=== PATIENT | male | born 1965 | race Caucasian/White ===

== ENCOUNTER 2021-04-26 09:23 | Outpatient (REF) | payer OTHER, SELFPAY ==
--- NOTE | ~2021-04-26 | XR_ITS ---
EXAMINATION: BILATERAL HAND X-RAY CLINICAL INFORMATION: Pain COMPARISON: None TECHNIQUE: 3 views of each hand FINDINGS: Right: Bone alignment is normal. No fracture or dislocation is seen. There is joint space narrowing and small osteophytes at the DIP joint of the fifth finger. Joint spaces are otherwise normal. Soft tissues are normal. Left: Bone alignment is normal. No fracture or dislocation is seen. The joint spaces are normal. Soft tissues are normal. XR/XR hand RT min 3V IMPRESSION: Mild arthritis at the DIP joint of the right fifth finger otherwise unremarkable exam.
--- NOTE | ~2021-04-26 | XR_ITS ---
EXAMINATION: BILATERAL HAND X-RAY CLINICAL INFORMATION: Pain COMPARISON: None TECHNIQUE: 3 views of each hand FINDINGS: Right: Bone alignment is normal. No fracture or dislocation is seen. There is joint space narrowing and small osteophytes at the DIP joint of the fifth finger. Joint spaces are otherwise normal. Soft tissues are normal. Left: Bone alignment is normal. No fracture or dislocation is seen. The joint spaces are normal. Soft tissues are normal. XR/XR hand LT min 3V IMPRESSION: Mild arthritis at the DIP joint of the right fifth finger otherwise unremarkable exam.
[2021-04-26 12:00] LABS: Alanine Aminotransferase 25 U/L (0-40); Albumin Level 3.9 g/dL (3.5-5.0); Alkaline Phosphatase 74 U/L (39-117); Anion Gap 14 (12-20); Aspartate Amino Transferase 20 U/L (5-37); Bilirubin Total 0.5 mg/dL (0.0-1.0); Blood Urea Nitrogen 10 mg/dL (9-16); C Reactive Protein 0.67 mg/dL (< or = 0.50); Calcium 9.1 mg/dL (8.4-10.2); Carbon Dioxide 27 mmol/L (22-29); Chloride 104 mmol/L (96-108); Cholesterol 146 mg/dL; Estimated Glomerular Filt Rate > 60; Glucose Fasting 95 mg/dL (60-99); HDL Cholesterol 26 mg/dL; LDL Cholesterol Calculated 89 mg/dl; Potassium 4.7 mmol/L (3.3-5.1); Rheumatoid Factor < 15.0 IU/mL (<15.0); Sodium 140 mmol/L (135-145); Total Protein 7.9 g/dL (6.5-8.0); Triglycerides 155 mg/dL
[2021-04-26 12:01] LABS: Prostate Specific Antigen Scr 0.51 ng/mL (<0.05-4.0); TSH reflex Free T4 1.32 uIU/mL (0.32-4.0)
[2021-04-26 12:10] LABS: Erythrocyte Sedimentation Rate 96 MM/HR (0-15)
[2021-04-27 21:07] LABS: Lyme Abs Screen <0.90 index
[2021-05-01 16:12] LABS: Cyclic Citrullinated Peptide <16 UNITS
== END 2021-04-26 09:24 | disposition home or self-care (01) ==
LOC: HO.HMGCX 09:23
PROVIDERS: PCP Nurse Practitioner Family; Visit Provider Nurse Practitioner Family
DX: Z00.00 Encounter for general adult medical examination without abnormal findings (principal); M25.50 Pain in unspecified joint; Z12.5 Encounter for screening for malignant neoplasm of prostate
CPT/HCPCS: 36415; 73130; 80053; 80061; 84153; 84443; 85652; 86140; 86200; 86431; 86617; 86618

== ENCOUNTER → 2024-03-03 12:30 | Outpatient (BNV) | payer OTHER, SELFPAY | PROVIDERS: Visit Provider Psychiatry & Neurology Psychiatry | DX: F33.2 Major depressive disorder, recurrent severe without psychotic features (principal) | CPT/HCPCS: 90867; 90868; 90869 ==

== ENCOUNTER 2024-05-14 11:00 | Outpatient (RCR) | payer OTHER, SELFPAY ==
--- NOTE | 2024-02-16 23:25 | P.CONTMS_ITS ---
History of Present Illness General Data Date of Service: 02/16/2024 Reason for consult: TMS EVAL RESISTANT DEPRESSION referred by [facility] History of Present Illness The patient is a single male currently living with his mother who has a history of treatment resistant depression currently treated at [facility]. Recent stressors include being laid off by the [employer] in December had been a district or district office director and he would lost a eddy current inspector dog of 18 years and number of months ago. The patient has an elevated PHQ-9 of 18 GED of 12 both described as very difficult patient reports marked anhedonia depressed mood almost all the with marked difficulty in functioning motivation and concentration he is thoughts would be better off but denies current plan or intent he does carry a diagnosis of recurrent depression severe generalized anxiety and ADHD. His current medications include Wellbutrin 150 mg higher doses were not helpful duloxetine 40 mg Adderall 20 mg twice a day he is on B12 replacement vitamin D3 and multivitamin. He is in ongoing psychotherapy at [facility] with sea Guevara which she has found helpful He is also dealing with a chronic issue of Joe straightens macroglobulinemia he has had he electrophoresis in the past he is regularly followed by a oncologist Past Psychiatric History/Medication Trials: He is failed in the current episode Wellbutrin Cymbalta fluoxetine up to 40 mg venlafaxine up to 150 mg with no response Fetzima 20 mg had adverse reaction to and was not tolerated [facility] Medical History (Updated 02/19/24 @ 13:41 by Obie Mills MD) Waldenstrom macroglobulinemia Family History: depression Social History: Patient is a single lim male currently living with his mother in [place] 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 No children not currently dating significant losses including synthetic significant medical illness loss of job loss of dog of 18 His father 4 years ago he does have 3 sisters Substance History: none noted Meds/Allergies Meds Home Medications ?Medication ?Instructions ?Recorded ?Confirmed ?Type dextroamphetamine-amphetamine 20 1 tab PO DAILY 12/14/22 History mg tablet dextroamphetamine-amphetamine ER 1 cap PO QAM 12/14/22 History 20 mg 24hr capsule,extend release fluoxetine 40 mg capsule 40 mg PO DAILY 12/14/22 History venlafaxine 75 mg tablet,extended 75 mg PO DAILY 12/14/22 History release 24 hr Allergies Allergies Allergy/AdvReac Type Severity Reaction Status Date / Time No Known Allergies Allergy Unverified 12/21/22 13:42 [No Known Allergies*] Mental Status Exam Mental Status Exam Patient Appearance: Well Grooomed Patient Orientation: Person, Place, Time and Situation Level of Consciousness: Awake and Appropriate Patient Behavior: Cooperative Mood Description: Depressed and Blunted Affect Description: Appropriate and Constricted Patient Cognition Impaired: No Ability to Follow Directions: Good Speech Pattern: Clear Memory Description: Intact Hallucinations: None Delusions: Not Present Thought Process: Intact and Goal Oriented Thought Content: positive for Goal Oriented, positive for Preoccupation, negative for Suicidal Ideation or negative for Homicidal Ideation Depressive Symptoms: Increased Anxiety, Insomnia, Increased Irritability, Hopelessness, Increased Fatigue, Loss of Energy and Difficulty Concentrating Judgement: Good Judgement and Insight: Patient is asking for help he does have thoughts at times he would be better off but does family connections Assessment & Plan Assessment & Plan (1) Major depressive disorder, recurrent severe without psychotic features: Status: Acute Code(s): F33.2 - Major depressive disorder, recurrent severe without psychotic features (2) Generalized anxiety disorder: Status: Acute Code(s): F41.1 - Generalized anxiety disorder Plan The patient has no medical concrete indications to TMS no history of seizures no pacemaker no cochlear implant no history of surgery above that her neck implants no history of significant head injury patient has reviewed material regarding TMS questions answered records from [facility] reviewed patient would benefit from initiating TMS as soon as possible he has a clear candidate with multiple failed trials of treatment able to maintain safety cooperative and engaged Total time managing care of this patient today 60____ minutes. Patient educated on: diagnosis and TMS Informed Consent: understands
--- NOTE | 2024-03-03 17:44 | HO.TMSDAILY2 ---
TMS Daily Progress Note Daily TMS Progress Note Date of Service: 03/03/24 Week #: 1 Treatment #(12-09): 1 PHQ-9 Pre-Treatment (12-06): 18 PHQ-9 Most Recent (12-06): 17 Reviewed: TMS Mapping/Re-mapping completed Verification: I have reviewed the TMS Digging Machine Operator Note and agree with the contents. The patient remains a candidate to continue TMS treatment per protocol. Assessment and Plan (1) Major depressive disorder, recurrent severe without psychotic features: Status: Acute (2) Generalized anxiety disorder: Status: Acute Plan pt completed mapping and 1st tx without difficulty
--- NOTE | 2024-03-10 17:34 | P.PNPS_ITS ---
TMS Daily Progress Note Daily TMS Progress Note Date of Service: 03/04/24 Week #: 1 Treatment #(12-09): 2 PHQ-9 Pre-Treatment (12-06): 18 PHQ-9 Most Recent (12-06): 17 Reviewed: TMS Tech Note Reviewed Verification: I have reviewed the TMS Oven Baker Note and agree with the contents. The patient remains a candidate to continue TMS treatment per protocol. Assessment and Plan (1) Major depressive disorder, recurrent severe without psychotic features: Status: Acute Plan Some lightheadedness after treatment otherwise ok flat
--- NOTE | 2024-03-10 17:37 | P.PNPS_ITS ---
TMS Daily Progress Note Daily TMS Progress Note Date of Service: 03/05/24 Week #: 1 Treatment #(12-09): 3 PHQ-9 Pre-Treatment (12-06): 18 PHQ-9 Most Recent (12-06): 17 Reviewed: TMS Tech Note Reviewed Verification: I have reviewed the TMS River Guide Note and agree with the contents. The patient remains a candidate to continue TMS treatment per protocol. Assessment and Plan (1) Major depressive disorder, recurrent severe without psychotic features: Status: Acute Plan Some fatigue noted otherwise tolerating treatment
--- NOTE | 2024-03-10 17:39 | P.PNPS_ITS ---
TMS Daily Progress Note Daily TMS Progress Note Date of Service: 03/08/24 Week #: 1 Treatment #(12-09): 4 PHQ-9 Pre-Treatment (12-06): 18 PHQ-9 Most Recent (12-06): 17 Reviewed: TMS Tech Note Reviewed Verification: I have reviewed the TMS Mill Tender Washing Note and agree with the contents. The patient remains a candidate to continue TMS treatment per protocol. Assessment and Plan (1) Major depressive disorder, recurrent severe without psychotic features: Status: Acute Plan Some fatigue noted otherwise tolerating treatment ongoing MT percentage today was at 100%
--- NOTE | 2024-03-10 17:42 | P.PNPS_ITS ---
TMS Daily Progress Note Daily TMS Progress Note Date of Service: 03/09/24 Week #: 1 Treatment #(12-09): 5 PHQ-9 Pre-Treatment (12-06): 18 PHQ-9 Most Recent (12-06): 17 Reviewed: TMS Tech Note Reviewed Verification: I have reviewed the TMS Head Strength And Conditioning Coach Note and agree with the contents. The patient remains a candidate to continue TMS treatment per protocol. Assessment and Plan (1) Major depressive disorder, recurrent severe without psychotic features: Status: Acute Plan Perhaps some brightening MT percentage 105%
--- NOTE | 2024-03-10 17:46 | HO.TMSDAILY2 ---
TMS Daily Progress Note Daily TMS Progress Note Date of Service: 03/10/24 Week #: 2 Treatment #(12-09): 6 PHQ-9 Pre-Treatment (12-06): 18 PHQ-9 Most Recent (12-06): 16 Reviewed: TMS Tech Note Reviewed Verification: I have reviewed the TMS Bilingual School Psychologist Note and agree with the contents. The patient remains a candidate to continue TMS treatment per protocol. Assessment and Plan (1) Major depressive disorder, recurrent severe without psychotic features: Status: Acute Plan cont plan of care
--- NOTE | 2024-03-25 10:42 | P.PNPS_ITS ---
TMS Daily Progress Note Daily TMS Progress Note Date of Service: 03/22/24 Week #: 3 Treatment #(12-09): 14 PHQ-9 Pre-Treatment (12-06): 18 PHQ-9 Most Recent (12-06): 19 Reviewed: TMS Tech Note Reviewed Verification: I have reviewed the TMS Aniline Press Worker Note and agree with the contents. The patient remains a candidate to continue TMS treatment per protocol. Assessment and Plan (1) Major depressive disorder, recurrent severe without psychotic features: Status: Acute Plan no improvement till this point no noted side effects
--- NOTE | 2024-03-25 10:42 | P.PNPS_ITS ---
TMS Daily Progress Note Daily TMS Progress Note Date of Service: 03/19/24 Week #: 3 Treatment #(12-09): 13 PHQ-9 Pre-Treatment (12-06): 18 PHQ-9 Most Recent (12-06): 19 Reviewed: TMS Tech Note Reviewed Verification: I have reviewed the TMS Technical Sme Note and agree with the contents. The patient remains a candidate to continue TMS treatment per protocol. Assessment and Plan (1) Major depressive disorder, recurrent severe without psychotic features: Status: Acute Plan no improvement till this point
--- NOTE | 2024-03-25 10:42 | P.PNPS_ITS ---
TMS Daily Progress Note Daily TMS Progress Note Date of Service: 03/23/24 Week #: 3 Treatment #(12-09): 15 PHQ-9 Pre-Treatment (12-06): 18 PHQ-9 Most Recent (12-06): 18 Reviewed: TMS Tech Note Reviewed Verification: I have reviewed the TMS Taper And Floater Note and agree with the contents. The patient remains a candidate to continue TMS treatment per protocol. Assessment and Plan (1) Major depressive disorder, recurrent severe without psychotic features: Status: Acute Plan no improvement till this point no noted side effects
--- NOTE | 2024-03-25 10:42 | P.PNPS_ITS ---
TMS Daily Progress Note Daily TMS Progress Note Date of Service: 03/11/24 Week #: 2 Treatment #(12-09): 7 PHQ-9 Pre-Treatment (12-06): 18 PHQ-9 Most Recent (12-06): 16 Reviewed: TMS Tech Note Reviewed Verification: I have reviewed the TMS Cheese Wrapper Note and agree with the contents. The patient remains a candidate to continue TMS treatment per protocol. Assessment and Plan (1) Major depressive disorder, recurrent severe without psychotic features: Status: Acute Plan cont plan of care tolerating tx
--- NOTE | 2024-03-25 10:42 | HO.TMSDAILY2 ---
TMS Daily Progress Note Daily TMS Progress Note Date of Service: 03/12/24 Week #: 2 Treatment #(12-09): 8 PHQ-9 Pre-Treatment (12-06): 18 PHQ-9 Most Recent (12-06): 16 Reviewed: TMS Tech Note Reviewed Verification: I have reviewed the TMS Turret Punch Operator Note and agree with the contents. The patient remains a candidate to continue TMS treatment per protocol. Assessment and Plan (1) Major depressive disorder, recurrent severe without psychotic features: Status: Acute (2) Generalized anxiety disorder: Status: Acute (3) Post traumatic stress disorder (PTSD): Status: Acute Plan cont plan of care tolerating tx
--- NOTE | 2024-03-25 10:42 | HO.TMSDAILY2 ---
TMS Daily Progress Note Daily TMS Progress Note Date of Service: 03/15/24 Week #: 2 Treatment #(12-09): 9 PHQ-9 Pre-Treatment (12-06): 18 PHQ-9 Most Recent (12-06): 19 Reviewed: TMS Tech Note Reviewed Verification: I have reviewed the TMS Car Rental Service Attendant Note and agree with the contents. The patient remains a candidate to continue TMS treatment per protocol. Assessment and Plan (1) Major depressive disorder, recurrent severe without psychotic features: Status: Acute (2) Generalized anxiety disorder: Status: Acute (3) Post traumatic stress disorder (PTSD): Status: Acute Plan cont plan of care tolerating ? some inc tremor
--- NOTE | 2024-03-25 10:42 | HO.TMSDAILY2 ---
TMS Daily Progress Note Daily TMS Progress Note Date of Service: 03/16/24 Week #: 2 Treatment #(12-09): 10 PHQ-9 Pre-Treatment (12-06): 18 PHQ-9 Most Recent (12-06): 19 Reviewed: TMS Tech Note Reviewed Verification: I have reviewed the TMS Cardiac Monitor Technician Note and agree with the contents. The patient remains a candidate to continue TMS treatment per protocol. Assessment and Plan (1) Major depressive disorder, recurrent severe without psychotic features: Status: Acute (2) Generalized anxiety disorder: Status: Acute (3) Post traumatic stress disorder (PTSD): Status: Acute Plan cont plan of care tolerating tx no improvement till this point
--- NOTE | 2024-03-25 10:42 | HO.TMSDAILY2 ---
TMS Daily Progress Note Daily TMS Progress Note Date of Service: 03/17/24 Week #: 3 Treatment #(12-09): 11 PHQ-9 Pre-Treatment (12-06): 18 PHQ-9 Most Recent (12-06): 19 Reviewed: TMS Tech Note Reviewed Verification: I have reviewed the TMS Director Data Processing Note and agree with the contents. The patient remains a candidate to continue TMS treatment per protocol. Assessment and Plan (1) Major depressive disorder, recurrent severe without psychotic features: Status: Acute (2) Generalized anxiety disorder: Status: Acute Plan cont plan of care tolerating tx no improvement till this point
--- NOTE | 2024-03-25 10:42 | HO.TMSDAILY2 ---
TMS Daily Progress Note Daily TMS Progress Note Date of Service: 04/12/24 Week #: 3 Treatment #(12-09): 12 PHQ-9 Pre-Treatment (12-06): 18 PHQ-9 Most Recent (12-06): 19 Reviewed: TMS Tech Note Reviewed Verification: I have reviewed the TMS Weaving Inspector Note and agree with the contents. The patient remains a candidate to continue TMS treatment per protocol. Assessment and Plan (1) Major depressive disorder, recurrent severe without psychotic features: Status: Acute (2) Generalized anxiety disorder: Status: Acute Plan cont plan of care tolerating tx no improvement till this point
--- NOTE | 2024-03-25 10:43 | P.PNPS_ITS ---
TMS Daily Progress Note Daily TMS Progress Note Date of Service: 03/24/24 Week #: 4 Treatment #(12-09): 16 PHQ-9 Pre-Treatment (12-06): 18 PHQ-9 Most Recent (12-06): 16 Reviewed: TMS Tech Note Reviewed Verification: I have reviewed the TMS Direct Service Worker Note and agree with the contents. The patient remains a candidate to continue TMS treatment per protocol. Assessment and Plan (1) Major depressive disorder, recurrent severe without psychotic features: Status: Acute Plan cont plan of care no improvement will remap
--- NOTE | 2024-03-25 10:43 | HO.TMSDAILY2 ---
TMS Daily Progress Note Daily TMS Progress Note Date of Service: 04/12/24 Week #: 4 Treatment #(12-09): 17 PHQ-9 Pre-Treatment (12-06): 18 PHQ-9 Most Recent (12-06): 18 Reviewed: TMS Mapping/Re-mapping completed Verification: I have reviewed the TMS Alarm Mechanic Note and agree with the contents. The patient remains a candidate to continue TMS treatment per protocol. Assessment and Plan (1) Major depressive disorder, recurrent severe without psychotic features: Status: Acute Plan remap indicated pt remains flat apathetic dysphoric no improvement noted pt participated in remappoing inc mt noted
--- NOTE | 2024-04-12 21:41 | HO.TMSDAILY2 ---
TMS Daily Progress Note Daily TMS Progress Note Date of Service: 04/09/24 Week #: 6 Treatment #(-30): 27 PHQ-9 Pre-Treatment (1-): 18 PHQ-9 Most Recent (12-06): 18 TOYIN-7 Pre-Treatment (0-21): 12 TOYIN-7 Most Recent (0-21): 12 Reviewed: TMS Tech Note Reviewed Verification: I have reviewed the TMS Tufting Machine Operator Single Needle Note and agree with the contents. The patient remains a candidate to continue TMS treatment per protocol.
--- NOTE | 2024-04-12 21:42 | HO.TMSDAILY2 ---
TMS Daily Progress Note Daily TMS Progress Note Date of Service: 03/29/24 Week #: 4 Treatment #(-30): 19 PHQ-9 Pre-Treatment (-): 18 PHQ-9 Most Recent (12-06): 18 TOYIN-7 Pre-Treatment (0-21): 12 TOYIN-7 Most Recent (0-21): 16 Reviewed: TMS Tech Note Reviewed Verification: I have reviewed the TMS Neon Sign Installer Note and agree with the contents. The patient remains a candidate to continue TMS treatment per protocol.
--- NOTE | 2024-04-12 21:45 | HO.TMSDAILY2 ---
TMS Daily Progress Note Daily TMS Progress Note Date of Service: 03/30/24 Week #: 4 Treatment #(-30): 20 PHQ-9 Pre-Treatment (-): 18 PHQ-9 Most Recent (12-06): 18 TOYIN-7 Pre-Treatment (0-): 12 TOYIN-7 Most Recent (0-): 16 Reviewed: TMS Tech Note Reviewed Verification: I have reviewed the TMS Automotive Specialty Technician Note and agree with the contents. The patient remains a candidate to continue TMS treatment per protocol.
--- NOTE | 2024-04-12 21:46 | HO.TMSDAILY2 ---
TMS Daily Progress Note Daily TMS Progress Note Date of Service: 03/31/24 Week #: 5 Treatment #(-30): 21 PHQ-9 Pre-Treatment (-): 18 PHQ-9 Most Recent (12-06): 18 TOYIN-7 Pre-Treatment (0-): 12 TOYIN-7 Most Recent (0-21): 16 Reviewed: TMS Tech Note Reviewed Verification: I have reviewed the TMS Offset Press Operator Note and agree with the contents. The patient remains a candidate to continue TMS treatment per protocol.
--- NOTE | 2024-04-12 21:48 | HO.TMSDAILY2 ---
TMS Daily Progress Note Daily TMS Progress Note Date of Service: 04/01/24 Week #: 5 Treatment #(-30): 22 PHQ-9 Pre-Treatment (-): 18 PHQ-9 Most Recent (12-06): 18 TOYIN-7 Pre-Treatment (0-21): 12 TOYIN-7 Most Recent (0-21): 16 Reviewed: TMS Tech Note Reviewed Verification: I have reviewed the TMS Pediatric Immunologist Note and agree with the contents. The patient remains a candidate to continue TMS treatment per protocol.
--- NOTE | 2024-04-12 21:50 | HO.TMSDAILY2 ---
TMS Daily Progress Note Daily TMS Progress Note Date of Service: 04/02/24 Week #: 5 Treatment #(-30): 23 PHQ-9 Pre-Treatment (-): 18 PHQ-9 Most Recent (12-06): 18 TOYIN-7 Pre-Treatment (0-21): 12 TOYIN-7 Most Recent (0-21): 16 Reviewed: TMS Tech Note Reviewed Verification: I have reviewed the TMS Mechanical Engineering Intern Note and agree with the contents. The patient remains a candidate to continue TMS treatment per protocol.
--- NOTE | 2024-04-12 21:51 | HO.TMSDAILY2 ---
TMS Daily Progress Note Daily TMS Progress Note Date of Service: 04/06/24 Week #: 5 Treatment #(-30): 24 PHQ-9 Pre-Treatment (-): 18 PHQ-9 Most Recent (12-06): 19 TOYIN-7 Pre-Treatment (0-21): 12 TOYIN-7 Most Recent (0-21): 12 Reviewed: TMS Tech Note Reviewed Verification: I have reviewed the TMS Senior Revenue Accountant Note and agree with the contents. The patient remains a candidate to continue TMS treatment per protocol.
--- NOTE | 2024-04-12 21:53 | P.PNPS_ITS ---
TMS Daily Progress Note Daily TMS Progress Note Date of Service: 04/07/24 Week #: 5 Treatment #(-30): 25 PHQ-9 Pre-Treatment (1-): 18 PHQ-9 Most Recent (-): 19 TOYIN-7 Pre-Treatment (0-21): 12 TOYIN-7 Most Recent (0-21): 12 Reviewed: TMS Tech Note Reviewed Verification: I have reviewed the TMS Air Quality Engineer Note and agree with the contents. The patient remains a candidate to continue TMS treatment per protocol.
--- NOTE | 2024-04-12 21:54 | P.PNPS_ITS ---
TMS Daily Progress Note Daily TMS Progress Note Date of Service: 04/08/24 Week #: 6 Treatment #(-): 26 PHQ-9 Pre-Treatment (1-): 18 PHQ-9 Most Recent (12-06): 19 TOYIN-7 Pre-Treatment (0-21): 12 TOYIN-7 Most Recent (0-21): 12 Reviewed: TMS Tech Note Reviewed Verification: I have reviewed the TMS Riding Instructor Note and agree with the contents. The patient remains a candidate to continue TMS treatment per protocol.
--- NOTE | 2024-04-12 21:57 | HO.TMSDAILY2 ---
TMS Daily Progress Note Daily TMS Progress Note Date of Service: 04/08/24 Week #: 6 Treatment #(-): 26 PHQ-9 Pre-Treatment (1-): 18 PHQ-9 Most Recent (12-06): 19 TOYIN-7 Pre-Treatment (0-21): 12 TOYIN-7 Most Recent (0-21): 12 Reviewed: TMS Tech Note Reviewed Verification: I have reviewed the TMS Assembler Liquid Center Note and agree with the contents. The patient remains a candidate to continue TMS treatment per protocol.
--- NOTE | 2024-04-13 22:33 | HO.TMSDAILY2 ---
TMS Daily Progress Note Daily TMS Progress Note Date of Service: 04/09/24 Week #: 6 Treatment #(-30): 27 PHQ-9 Pre-Treatment (1-): 18 PHQ-9 Most Recent (12-06): 19 TOYIN-7 Pre-Treatment (0-21): 12 TOYIN-7 Most Recent (0-21): 12 Reviewed: TMS Tech Note Reviewed Verification: I have reviewed the TMS Manager Restaurant Note and agree with the contents. The patient remains a candidate to continue TMS treatment per protocol. Assessment and Plan (1) Major depressive disorder, recurrent severe without psychotic features: Status: Acute Plan may have relapse with waldenstroms tx may need to be on hold
--- NOTE | 2024-05-03 11:58 | HO.TMSDAILY2 ---
TMS Daily Progress Note Daily TMS Progress Note Date of Service: 04/27/24 Week #: 6 Treatment #(-30): 28 PHQ-9 Pre-Treatment (-): 18 PHQ-9 Most Recent (12-06): 14 TOYIN-7 Pre-Treatment (0-21): 12 TOYIN-7 Most Recent (0-21): 12 Reviewed: TMS Tech Note Reviewed Verification: I have reviewed the TMS Materials Management Supervisor Note and agree with the contents. The patient remains a candidate to continue TMS treatment per protocol. Patient had missed about 3 weeks of treatment secondary to being hospitalized for cancer treatment Waldenstroms macroglobulinemia which is now much improved eager to return to treatment
--- NOTE | 2024-05-03 12:01 | HO.TMSDAILY2 ---
TMS Daily Progress Note Daily TMS Progress Note Date of Service: 04/28/24 Week #: 6 Treatment #(-): 29 PHQ-9 Pre-Treatment (-): 18 PHQ-9 Most Recent (12-06): 14 TOYIN-7 Pre-Treatment (0-21): 12 TOYIN-7 Most Recent (0-21): 12 Reviewed: TMS Tech Note Reviewed Verification: I have reviewed the TMS Supercalender Operator Helper Note and agree with the contents. The patient remains a candidate to continue TMS treatment per protocol. Assessment and Plan (1) Major depressive disorder, recurrent severe without psychotic features: Status: Acute Plan Patient is showing more motivation increasing MT threshold as tolerated feels treatment is being helpful no noted side effects
--- NOTE | 2024-05-03 12:03 | HO.TMSDAILY2 ---
TMS Daily Progress Note Daily TMS Progress Note Date of Service: 04/29/24 Week #: 6 Treatment #(-30): 30 PHQ-9 Pre-Treatment (-): 18 PHQ-9 Most Recent (12-06): 14 TOYIN-7 Pre-Treatment (0-21): 12 TOYIN-7 Most Recent (0-21): 12 Reviewed: TMS Tech Note Reviewed Verification: I have reviewed the TMS Cell Stripper Final Note and agree with the contents. The patient remains a candidate to continue TMS treatment per protocol. Assessment and Plan (1) Major depressive disorder, recurrent severe without psychotic features: Status: Acute Plan Patient feeling more motivated engaged tolerating treatment MT threshold 115% asking about possibility extending treatment that given that he had been hospitalized
--- NOTE | 2024-05-03 12:05 | P.PNPS_ITS ---
TMS Daily Progress Note Daily TMS Progress Note Date of Service: 04/30/24 Week #: 7 Treatment #(-): 31 PHQ-9 Pre-Treatment (-): 18 PHQ-9 Most Recent (12-06): 14 TOYIN-7 Pre-Treatment (0-): 12 TOYIN-7 Most Recent (0-): 12 Reviewed: TMS Tech Note Reviewed Verification: I have reviewed the TMS Graduate Advisor Note and agree with the contents. The patient remains a candidate to continue TMS treatment per protocol. Assessment and Plan (1) Major depressive disorder, recurrent severe without psychotic features: Status: Acute Plan Patient feeling more mobilized more variable able to engage more no complaints of side effects MT 120%
--- NOTE | 2024-05-03 12:07 | P.PNPS_ITS ---
TMS Daily Progress Note Daily TMS Progress Note Date of Service: 04/30/24 Week #: 7 Treatment #(-30): 31 PHQ-9 Pre-Treatment (-): 18 PHQ-9 Most Recent (12-06): 14 TOYIN-7 Pre-Treatment (0-): 12 TOYIN-7 Most Recent (0-): 12 Reviewed: TMS Tech Note Reviewed Verification: I have reviewed the TMS Speech And Drama Teacher Note and agree with the contents. The patient remains a candidate to continue TMS treatment per protocol. Assessment and Plan (1) Major depressive disorder, recurrent severe without psychotic features: Status: Acute (2) Waldenstrom macroglobulinemia: Status: Acute (3) Generalized anxiety disorder: Status: Acute Plan Given recent cancer treatment trying to get extended course for TMS
--- NOTE | 2024-05-05 17:49 | P.PNPS_ITS ---
TMS Daily Progress Note Daily TMS Progress Note Date of Service: 05/03/24 Week #: 7 Treatment #(-): 32 PHQ-9 Pre-Treatment (-): 18 PHQ-9 Most Recent (12-06): 13 TOYIN-7 Pre-Treatment (0-21): 12 TOYIN-7 Most Recent (0-21): 12 Reviewed: TMS Tech Note Reviewed Verification: I have reviewed the TMS Coal Equipment Operator Note and agree with the contents. The patient remains a candidate to continue TMS treatment per protocol. Assessment and Plan (1) Major depressive disorder, recurrent severe without psychotic features: Status: Acute Plan Patient tolerating treatment well hoping to get more treatments approved for extended course just starting to feel better had interruption secondary to cancer treatment no adverse effects noted
--- NOTE | 2024-06-09 10:53 | P.PNPS_ITS ---
TMS Daily Progress Note Daily TMS Progress Note Date of Service: 05/05/24 Week #: 7 Treatment #(12-09): 33 PHQ-9 Pre-Treatment (-): 18 PHQ-9 Most Recent (12-06): 13 TOYIN-7 Pre-Treatment (0-21): 12 TOYIN-7 Most Recent (0-21): 12 Reviewed: TMS Tech Note Reviewed Verification: I have reviewed the TMS Construction Equipment Technician Note and agree with the contents. The patient remains a candidate to continue TMS treatment per protocol. Assessment and Plan (1) Major depressive disorder, recurrent severe without psychotic features: Status: Acute Plan Patient continues show improvement no complaints of side effects still hoping extended course will get approved
--- NOTE | 2024-06-09 10:55 | HO.TMSDAILY2 ---
TMS Daily Progress Note Daily TMS Progress Note Date of Service: 05/07/24 Week #: 8 Treatment #(12-09): 34 PHQ-9 Pre-Treatment (-): 18 PHQ-9 Most Recent (12-06): 13 TOYIN-7 Pre-Treatment (0-21): 12 TOYIN-7 Most Recent (0-21): 12 Reviewed: TMS Tech Note Reviewed Verification: I have reviewed the TMS Directional Bore Operator Note and agree with the contents. The patient remains a candidate to continue TMS treatment per protocol. Assessment and Plan (1) Major depressive disorder, recurrent severe without psychotic features: Status: Acute Plan Patient does show clear improvement is aware extended treatment course was not approved by insurance in general however is stealing still feeling significantly better no complaints of side effects
--- NOTE | 2024-06-09 10:57 | HO.TMSDAILY2 ---
TMS Daily Progress Note Daily TMS Progress Note Date of Service: 05/10/24 Week #: 8 Treatment #(12-09): 35 PHQ-9 Pre-Treatment (-): 18 PHQ-9 Most Recent (12-06): 13 TOYIN-7 Pre-Treatment (0-21): 12 TOYIN-7 Most Recent (0-21): 12 Reviewed: TMS Tech Note Reviewed Verification: I have reviewed the TMS Director Agricultural Services Note and agree with the contents. The patient remains a candidate to continue TMS treatment per protocol. Assessment and Plan (1) Major depressive disorder, recurrent severe without psychotic features: Status: Acute Plan Patient continues to feel better generally some concerns regarding a deep aging process related to his birthday otherwise generally improved from initiation of treatment
--- NOTE | 2024-06-09 10:59 | P.PNPS_ITS ---
TMS Daily Progress Note Daily TMS Progress Note Date of Service: 05/14/24 Week #: 8 Treatment #(12-09): 36 PHQ-9 Pre-Treatment (-): 18 PHQ-9 Most Recent (12-06): 13 TOYIN-7 Pre-Treatment (0-21): 12 TOYIN-7 Most Recent (0-21): 12 Reviewed: TMS Tech Note Reviewed Verification: I have reviewed the TMS Exceptional Student Education Teacher Note and agree with the contents. The patient remains a candidate to continue TMS treatment per protocol. Assessment and Plan (1) Major depressive disorder, recurrent severe without psychotic features: Status: Acute Plan Patient here for last day of treatment feels that this has been quite helpful
== END 2024-05-14 15:17 | disposition home or self-care (01) ==
LOC: HO.PTMS 11:00
PROVIDERS: Visit Provider Psychiatry & Neurology Psychiatry
DX: F33.2 Major depressive disorder, recurrent severe without psychotic features (principal); F41.1 Generalized anxiety disorder
CPT/HCPCS: 90867; 90868; 90869